=== PATIENT | male | born 1980 | race Two or more races ===

== ENCOUNTER 2016-11-14 23:59 | Emergency (ER) | payer SELFPAY ==
[~2016-11-14] VITALS: Ht 167.6 cm; Wt 104.5 kg
[~2016-11-14 23:59] MED LIST: AMOXICILLIN500 MG PO; CIPRO500 MG OR; LORTAB 10-325 M1 TAB PO; NO HOME MEDS; PERCOCET 5/325M1 TAB OR; SILVADENE1 % EX; ULTRAM50 M1 PO
[2016-11-15 00:42] LABS: URINE BLOOD DIPSTICK SMALL (NEGATIVE); URINE CLARITY CLEAR; URINE COLOR YELLOW; URINE GLUCOSE - DIPSTICK 100 mg/dL (NEGATIVE); URINE KETONE TRACE mg/dL (NEGATIVE); URINE PH 5.5 (4.5-8.0); URINE PROTEIN - DIPSTICK 100 mg/dL (NEG-TRACE)
[2016-11-15 00:43] LABS: HEMATOCRIT 41.9 % (39.0-50.0); HEMOGLOBIN 14.1 g/dl (14.0-18.0); IMMATURE GRANULOCYTES 0.3 % (0.0-1.0); MEAN CELL VOLUME 90.7 fL CALC (80.0-100.0); MEAN CORPUSCULAR HGB 30.5 pG CALC (26.0-32.0); MEAN CORPUSCULAR HGB CONC 33.7 g/L CALC (32.0-36.0); NEUT# 11.93 thou/uL (1.82-7.42); RED BLOOD COUNT 4.62 mill/uL (4.70-6.10); RED CELL DISTRI WIDTH 13.2 % (11.5-15.5)
[2016-11-15 00:48] LABS: URINE BILIRUBIN - DIPSTICK NEGATIVE (NEGATIVE); URINE LEUK ESTERASE MODERATE (NEGATIVE); URINE NITRITE - DIPSTICK POSITIVE (Negative)
[2016-11-15 00:58] LABS: URINE BACTERIA FEW hpf; URINE WBC 50-100 WBC/hpf (0-5)
[2016-11-15 01:00] LABS: ALBUMIN 4.1 g/dL (3.2-5.0); ALKALINE PHOSPHATASE 92 u/l (38-126); AMYLASE 96 u/l (30-110); ANION GAP 16 (6-22 (CALC)); BILIRUBIN, TOTAL 0.5 mg/dL (0.0-1.4); BUN 10 mg/dL (9-20); BUN/CREATININE RATIO 12 (12-20 (CALC)); CALCIUM 9.1 mg/dL (8.4-10.2); CARBON DIOXIDE 26 mmol/l (22-30); CHLORIDE 101 mmol/l (95-108); CREATININE 0.9 mg/dL (0.7-1.3); GFR > 60 ML/MIN (>=60 (CALC)); GFR FOR AFR.AMER. > 60 ML/MIN (>=60 (CALC)); GLUCOSE 109 mg/dL (75-110); LIPASE 228 u/l (23-300); SGOT/AST 33 u/l (17-59); SGPT/ALT 56 u/l (21-72); SODIUM 139 mmol/l (137-146); TOTAL PROTEIN 7.3 g/dL (6.3-8.2)
[2016-11-15] MEDS ORDERED: PERCOCET 5/325M1 TAB PO (03:02)
[2016-11-15] MEDS ORDERED: Levaquin PO (03:02)
[2016-11-15 03:14] VITALS: BP 123/83
== END 2016-11-15 03:14 | disposition home or self-care (01) | DRG 690 ==
LOC: ED 23:59
PROVIDERS: Emergency Medicine
DX: N39.0 Urinary tract infection, site not specified (principal); N20.0 Calculus of kidney; N43.3 Hydrocele, unspecified; F17.210 Nicotine dependence, cigarettes, uncomplicated

== ENCOUNTER 2017-01-31 21:09 | Emergency (ER) | payer SELFPAY ==
[~2017-01-31] VITALS: Ht 167.6 cm; Wt 104.5 kg
[~2017-01-31 21:09] MED LIST changes: +Levaquin PO; +PERCOCET 5/325M1 TAB PO
[2017-01-31] MEDS ORDERED: LORTAB 10-325 M1 TAB PO (21:44)
[2017-01-31] MEDS ORDERED: AMOXICILLIN500 MG PO (21:44)
[2017-01-31 22:20] VITALS: BP 128/86
== END 2017-01-31 22:27 | disposition home or self-care (01) | DRG 159 ==
LOC: ED 21:09
DX: K04.7 Periapical abscess without sinus (principal); F17.200 Nicotine dependence, unspecified, uncomplicated

== ENCOUNTER 2017-07-05 20:26 | Emergency (ER) | payer SELFPAY ==
[~2017-07-05] VITALS: Ht 167.6 cm; Wt 104.0 kg
[2017-07-05] MEDS ORDERED: LORTAB 1010 MG PO (21:17)
[2017-07-05 22:02] VITALS: BP 138/81
== END 2017-07-05 22:15 | disposition home or self-care (01) | DRG 563 ==
LOC: ED 20:26
PROC: 2W3MX1Z Immobilization of Left Lower Extremity using Splint (ICD-10-PCS; principal; 2017-07-05)
DX: S82.62XA Displaced fracture of lateral malleolus of left fibula, initial encounter for closed fracture (principal); W01.0XXA Fall on same level from slipping, tripping and stumbling without subsequent striking against object, initial encounter; Y93.9 Activity, unspecified; Y92.009 Unspecified place in unspecified non-institutional (private) residence as the place of occurrence of the external cause

== ENCOUNTER 2018-07-27 22:54 | Emergency (ER) | payer SELFPAY ==
[~2018-07-27] VITALS: Ht 167.6 cm; Wt 100.0 kg
[~2018-07-27 22:54] MED LIST changes: +LORTAB 1010 MG PO
[2018-07-27] MEDS ORDERED: CIPROFLOXACN500 MG PO (23:11)
[2018-07-27 23:48] LABS: HEMATOCRIT 38.4 % (39.0-50.0); HEMOGLOBIN 12.6 g/dl (14.0-18.0); IMMATURE GRANULOCYTES 0.3 % (0.0-5.0); MEAN CORPUSCULAR HGB 29.9 pG CALC (26.0-32.0); MEAN CORPUSCULAR HGB CONC 32.8 g/L CALC (32.0-36.0); NEUT# 7.63 thou/uL (1.82-7.42); RED BLOOD COUNT 4.22 mill/uL (4.70-6.10); RED CELL DISTRI WIDTH 13.2 % (11.5-15.5)
[2018-07-27 23:48] LABS: URINE BILIRUBIN - DIPSTICK NEGATIVE (NEGATIVE); URINE BLOOD DIPSTICK NEGATIVE (NEGATIVE); URINE COLOR YELLOW; URINE GLUCOSE - DIPSTICK NEGATIVE (NEGATIVE); URINE KETONE NEGATIVE (NEGATIVE); URINE LEUK ESTERASE NEGATIVE (NEGATIVE); URINE NITRITE - DIPSTICK NEGATIVE (Negative); URINE PH 5.5 (4.5-8.0); URINE PROTEIN - DIPSTICK NEGATIVE (NEG-TRACE); URINE SPECIFIC GRAVITY >=1.030; URINE UROBILINOGEN - DIPSTICK 0.2 E.U./dL (0.2)
[2018-07-28 00:02] LABS: ALBUMIN 3.7 g/dL (3.2-5.0); ALKALINE PHOSPHATASE 79 u/l (38-126); ANION GAP 13 (6-22 (CALC)); BILIRUBIN, TOTAL 0.2 mg/dL (0.0-1.4); BUN 11 mg/dL (9-20); BUN/CREATININE RATIO 12 (12-20 (CALC)); CARBON DIOXIDE 23 mmol/l (22-30); CHLORIDE 106 mmol/l (95-108); CREATININE 0.9 mg/dL (0.7-1.3); GFR > 60 ML/MIN (>=60 (CALC)); GFR FOR AFR.AMER. > 60 ML/MIN (>=60 (CALC)); POTASSIUM 3.5 mmol/l (3.5-5.1); SGOT/AST 42 u/l (17-59); SODIUM 139 mmol/l (137-146); TOTAL PROTEIN 6.5 g/dL (6.3-8.2)
[2018-07-28] MEDS ORDERED: TAM75CAP PO (00:47)
[2018-07-28 01:50] VITALS: BP 137/78
== END 2018-07-28 01:50 | disposition home or self-care (01) | DRG 195 ==
LOC: ED 22:54
PROVIDERS: Family Medicine
DX: J10.1 Influenza due to other identified influenza virus with other respiratory manifestations (principal); R50.9 Fever, unspecified; M79.10 Myalgia, unspecified site; R11.2 Nausea with vomiting, unspecified; F17.200 Nicotine dependence, unspecified, uncomplicated; M25.50 Pain in unspecified joint

== ENCOUNTER 2019-02-08 10:44 | Emergency (ER) | payer SELFPAY ==
[~2019-02-08] VITALS: Ht 167.6 cm; Wt 110.0 kg
[~2019-02-08 10:44] MED LIST changes: +CIPROFLOXACN500 MG PO; +TAM75CAP PO
[2019-02-08] MEDS ORDERED: LORTAB 1010 MG PO (11:10)
[2019-02-08] MEDS ORDERED: AMOXICILLIN500 MG PO (11:10)
[2019-02-08 11:31] VITALS: BP 158/98
== END 2019-02-08 11:31 | disposition home or self-care (01) | DRG 158 ==
LOC: ED 10:44
DX: K04.7 Periapical abscess without sinus (principal); M84.68XA Pathological fracture in other disease, other site, initial encounter for fracture; F17.210 Nicotine dependence, cigarettes, uncomplicated

== ENCOUNTER 2019-07-29 | Emergency (ER) | payer SELFPAY ==
[2019-07-29] MEDS ORDERED: PENICILLN VK500 MG PO (18:57)
== END 2019-07-29 19:01 | disposition home or self-care (01) | DRG 603 ==
DX: L02.91 Cutaneous abscess, unspecified (principal); K02.9 Dental caries, unspecified; F17.210 Nicotine dependence, cigarettes, uncomplicated